=== PATIENT | male | born 1995 | race Two or more races ===

== ENCOUNTER 2024-05-19 17:42 | Emergency (ER) | payer SELFPAY ==
[2024-05-19 17:43] VITALS: BMI 24.1
[2024-05-19 18:01] VITALS: BP 163/98; PULSE 96; RESP 16; TEMP 36.7; O2SAT 100; BMI 27.1
--- NOTE | 2024-05-19 18:18 | PD.EDADULT ---
ED General RME/HPI General Chief complaint: Wound/Laceration Stated complaint: Left upper leg lac with machete at work Time Seen by Provider: 05/19/24 17:58 Arrival date/time: 05/19/24 17:42 RME / HPI RME / HPI narrative: Patient is 29 years old Slovenian-speaking male with no significant past medical history presented to the ED after he sustained a laceration to his left lower extremity. He was cutting bushes with his machine at the and ultimately hit his left leg above the knee. He reports he sustained a laceration while working at his [employer]. He denies being assaulted. He also denies being under the influence of any drugs or alcohol. Related Data Previous Rx's ?Medication ?Instructions ?Recorded ibuprofen 600 mg tablet 600 mg PO Q8HR PRN PAIN #30 tabs 08/21/15 Allergies Allergy/AdvReac Type Severity Reaction Status Date / Time NKA* Allergy Uncoded 08/21/15 02:50 Review of Systems Review of Systems Systems Reviewed: All systems reviewed, normal except as documented ED Exam Narrative Physical exam: Gen: Well-developed and well-nourished. HEENT: NCAT, PERRLA, EOMI, MMM, anicteric conjunctivae. CVS: normal S1 and S2. RRR. No M/R/G. Resp: CTA B/L. No rhonchi, rales, crackles or wheezing. Abd: soft, non-tender, non-distended. BS+ in all 4 quadrants. MSK: Good ROM in BUE & BLE. No edema or rash. Left leg 6 cm laceration above the knee, mild bleeding, some subcutaneous fat can be observed. Neuro: CN II-XII grossly intact. Strength 5/5 in BUE & BLE. Alert and oriented x3. Psych: appropriate mood and affect. Course Course Course Narrative: 1820 7 raoul placed. Quality Measures none Vital Signs Vital signs: Vital Signs Temperature 98.1 F 05/19/24 18:01 Pulse Rate 96 05/19/24 18:01 Respiratory Rate 16 05/19/24 18:01 Blood Pressure 163/98 H 05/19/24 18:01 Pulse Oximetry (%) 100 05/19/24 18:01 Oxygen Delivery Method Room Air 05/19/24 18:01 Procedures -ED Laceration Laceration 1: Site: lower extremity Side (If applicable): left Size (cm): 6 Description: linear and clean Depth: simple, single layer Local Anesthetic: other anesthetic (refused) Pre-repair: wound explored, irrigated extensively and deep structures intact Skin layer closed with: other (surgical raoul) Number of sutures: 7 Technique: other MDM Patient data External records reviewed:: None Clinical information provided by:: patient Social determinants that could affect healthcare access:: none Patient has the following chronic illnesses:: none How is presenting disease/condition affected by chronic disease/condition?: no chronic disease Evaluation data The following diagnostics were reviewed and interpreted by me:: other (specify) (none) Lab and/or radiology exams considered but not ordered:: X-Ray Interpretation Summary: none. Medications Medications considered but not ordered:: Lidocaine, morphine Medication administrations:: none Consultations Consultation(s) initiated? (list below): No Diagnosis Differential Diagnosis ED Complaint MDM: Laceration, assault Most likely diagnosis given after review of the tests above:: Laceration Admission Indicated Admission indicated?: not indicated Explain why admission is indicated or not indicated:: Simple laceration, raoul placed in the ED, follow up outpatient to remove raoul. Admission Request Was there a request for admission?: No Disposition Plan Disposition Plan: Discharge Discharge Attestation Discharge Attestation: The patient and all family members were given an opportunity to ask questions and understood the discharge instructions. Discharge instructions specifically effects, indications for sooner follow up or return to the emergency department, and the expected course of current diagnosis. Patient condition: Stable Medical Decision Making Differential Diagnosis Differential Diagnosis: Laceration, assault Discharge Plan Plan Patient Disposition: HOME (Self Care) Patient condition on transfer: Stable Prescriptions/Referrals Prescriptions/Med Rec: No Action ibuprofen 600 MG tablet 600 mg PO Q8HR PRN (Reason: PAIN) Qty: 30 0RF Problem List Clinical Impression: Laceration Patient/Caregiver Discharge Instructions Additional Instructions: Discharge instructions from Dr. Cope:? -- Your laceration was repaired with 7 raoul. -- Keep the current dressing intact for 24 hours. -- After 24 hours, change the dressing once daily. -- First remove the dressing gently.? If it does not come off easily, run water through it until it comes off easily. -- Then gently wash with soap and water. -- After completely drying, apply antibiotic ointment and new dressing. -- Elevate above the waist level today and tomorrow as much as possible.? -- See your doctor or return here in 10 days to remove 10 raoul. -- Seek immediate medical care with fever, spreading redness from the wound, or with any concerns. Instrucciones de aruna del Dr. Cope: -- Andersen laceraci?n fue reparada con 7 grapas. -- Mantenga el vendaje actual intacto clifford 24 horas. -- Despu?s de 24 horas, cambie el vendaje star vez al d?a. -- Ector retire el vendaje con cuidado. Si no se desprende f?cilmente, deje correr agua a cassie?s de ?l hasta que se desprenda f?cilmente. -- Luego, lave suavemente con agua y jab?n. -- Despu?s de secar completamente, aplique [place]?ento antibi?susana y un vendaje nuevo. -- Eleve por encima del nivel de la cintura hoy y ma?efren tanto lucille sea posible. P -- Visite a andersen m?dico o regrese aqu? en 10 d?as para quitar 10 grapas. -- Busque atenci?n m?dica inmediata si tiene fiebre, enrojecimiento que se extiende desde la herida o si tiene alguna inquietud. Print Language: Slovenian Stand Alone Forms: Corin Award Info., Patient Portal Info Letter
--- NOTE | 2024-05-19 18:35 | PC.NURSE ---
PATIENT STATING INJURY HAPPENED AT HOME, WHILE DOING YARD WORK.
== END 2024-05-19 18:45 | disposition home or self-care (01) ==
LOC: SERX 19:11
PROVIDERS: Emergency Provider Student in an Organized Health Care Education/Training Program
DX: S71.112A Laceration without foreign body, left thigh, initial encounter (principal); W27.8XXA Contact with other nonpowered hand tool, initial encounter; Y93.H2 Activity, gardening and landscaping; Y92.007 Garden or yard of unspecified non-institutional (private) residence as the place of occurrence of the external cause
CPT/HCPCS: 12002; 99283